=== PATIENT | female | born 1965 | race Caucasian/White ===

== ENCOUNTER 2021-10-15 15:54 | Emergency (ER) | payer OTHER, SELFPAY ==
[2021-10-15 15:57] VITALS: BP 150/83; PULSE 82; RESP 16; TEMP 36.6; O2SAT 98; BMI 23.0
--- NOTE | 2021-10-15 16:14 | W.ED.EYEPROB ---
HPI - Eye Problem General: Chief complaint: Eye Problems Stated complaint: Got something in her eye Time Seen by Provider: 10/15/21 16:03 Source: patient Mode of arrival: ambulatory Limitations: no limitations History of Present Illness: Patient is a 56-year-old female who presents to ED today with complaint of possible foreign body to her left eye. 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 She states she rubbed the eye initially and then copiously irrigated. She is not having any visual changes but does still feel like there is a retained foreign body. chief complaint: foreign body Onset (ago): hour(s) Onset description: sudden Duration: constant Location: left eye Eye Symptoms: burning Place: work Mechanism: none Severity: mild If Pain, Quality: burning Associated symptoms: Reports no associated symptoms Treatments Prior to Arrival: irrigated eye Related Data: Patient tetanus UTD: Yes Review of Systems Eyes: Reports: eye redness and other (fb sensation); Denies: change in vision, blind spots, eye discharge, floaters or seeing flashes Physical Exam Const: COMMON NORMALS: no acute distress, average body habitus, patient oriented x3, no limitations, alert and well nourished GENERAL APPEARANCE: cooperative Eye: COMMON NORMALS: Equal, round and reactive pupils present, EOMs intact bilaterally and no scleral icterus GENERAL EYE: normal light reflex VISUAL ACUITY: Yes acuity normal VISUAL FERNANDES: No peripheral vision loss and No central vision loss ALIGNMENT: Yes alignment normal PERIORBITAL: periorbital findings normal EYELID: eyelids normal CONJUNCTIVA: Yes conjunctival abnormal positive left conjunctival injection SCLERA: sclerae normal CORNEA: Yes corneas normal and fluorescein used PUPIL: Yes Equal, round and reactive pupils present DIRECT OPHTHALMOSCOPY: Yes normal light reflex Neuro: COMMON NORMALS: patient oriented x3 SENSORIUM/ORIENTATION: Yes alert Course Vital Signs: Vital signs: Vital Signs Temperature 97.8 F 10/15/21 15:57 Pulse Rate 82 10/15/21 15:57 Respiratory Rate 16 10/15/21 15:57 Blood Pressure 150/83 10/15/21 15:57 Pulse Oximetry 98 10/15/21 15:57 MDM - Eye Problem Medical Decision Making I do not visualize any foreign bodies. There is no stain uptake on her fluorescein exam. Essentially normal exam apart from some conjunctival injection. Patient here stating she was walking to a laundry room when she immediately felt something fly into her left eye. She states she was not around any chemicals that could have splashed or any type of metal. Eye was copiously irrigated. She will be placed on erythromycin ointment and we will have her follow-up with Worker's Comp. Return to ED precautions verbally given. Discharge Plan Discharge Patient Disposition: Home Clinical Impression: Left eye pain Condition: Stable Prescriptions: New erythromycin 5 mg/gram (0.5 %) ointment 1 applic ophthalmic (eye) Q4H 7 Days Qty: 1 0RF Discharge Orders: Discharge ED (Routine); Ordered 10/15/21 Ordered By: Marli Chew Activity Restrictions/Additional Instructions: Follow up with Worker's Comp as instructed. You should have been given instructions regarding drug/alcohol testing. You need to return to the emergency department immediately for worsening eye pain, visual changes, visual loss, or any other concerns you may have. Coding Level of Care Code ED Vendor Quality Supervisor for Mary Fwd Exam Expanded Problem Focused
[2021-10-15] MEDS: eye irrigation 30 mL Btl EYE-LEFT (16:25)
[2021-10-15] MEDS: tetracaine 0.5% Op Soln 4 mL Btl 1 DROP EYE-LEFT (16:26)
[2021-10-15] MEDS: fluorescein 1 mg Strip EYE-LEFT (16:26)
== END 2021-10-15 17:05 | disposition home or self-care (01) ==
PROVIDERS: Emergency Provider Physician Assistant
DX: H57.12 Ocular pain, left eye (principal)
CPT/HCPCS: 99283